=== PATIENT | female | born 1990 | race Caucasian/White ===

== ENCOUNTER 2021-06-13 05:53 | Emergency (ER) | payer OTHER ==
[2021-06-13] MEDS ORDERED: Haloperidol Lactate 5 MG/ML SDV IM ONE (06:55)
[2021-06-13] MEDS ORDERED: Benztropine 1 MG Tab PO STA (06:55)
--- NOTE | 2021-06-13 07:02 | EDM.PDOC ---
ED HPI GENERAL MEDICAL PROBLEM - General Chief Complaint: Headache Stated Complaint: MIGRAINE Time Seen by Provider: 06/13/21 06:36 Source of Information: Reports: Patient History Limitations: Reports: No Limitations - History of Present Illness INITIAL COMMENTS - FREE TEXT/NARRATIVE: Mrs. Robles is a very pleasant 38-year-old woman who now presents the ED with a headache. She states that she has a history of occipital neuralgia, but also states that she has had migraine headaches ever since she was about 4 years old. She states that she has many triggers, and when she was on a gluten-free diet, she went about 6 months without a headache, however, she had to quit that diet due to cost, and since then, she has been experiencing these headaches about every 2 weeks. This current headache began around 13:00 yesterday afternoon, 06/11/2021. She describes it as a squeezing sensation felt in the back of her head and neck. She states that she has an upset stomach, but no nausea or vomiting. She reports photophobia, but no phonophobia. No visual changes, and no neurologic symptoms. She states that her current headache is the same as she always gets. The patient states that she took a rizatriptan tablet around 15:00 yesterday, then 2 Benadryl's last night, then a second rizatriptan tablet around 04:30 this morning, without relief of her symptoms. The patient states that the last imaging study of her head was a CT scan in 2012. Here in the ED, the patient is found to be hemodynamically stable, afebrile, saturating 95% on room air. She appears to be relatively comfortable, in no acute distress. The patient states that she suffers from constipation and chronic low back pain. Otherwise, prior to 13:00 yesterday, the patient denies having a recent fever, chills, sore throat, ear pain, nasal or sinus congestion, cough, dyspnea, chest pain, palpitations, nausea, vomiting, diarrhea, abdominal pain, urinary symptoms, recent weight gain or weight loss, recent bloody bowel movements or black bowel movements, recent joint aches, or rashes. The patient's PCP is Dr. Emely Bennett. Her Neurology midlevel is Swapna Bowman NP. Her Bariatric Surgeon is Dr. Anna Dewing. She has received 2 COVID vaccinations. Headache Pain Score (Numeric/FACES): 8 - Related Data Allergies Allergy/AdvReac Type Severity Reaction Status Date / Time No Known Allergies Allergy Verified 06/13/21 07:12 Past Medical History Respiratory History: Reports: Sleep Apnea (nightly CPAP 11) Gastrointestinal History: Reports: GERD Musculoskeletal History: Reports: Osteoarthritis (spine) Neurological History: Reports: Migraines Psychiatric History: Reports: Anxiety, Depression Endocrine/Metabolic History: Reports: Hypothyroidism (Porsche's thyroiditis), Obesity/BMI 30+ - Past Surgical History HEENT Surgical History: Reports: Adenoidectomy, Naso-Sinus Surgery, Oral Surgery (dental extractions), Tonsillectomy Social & Family History - Tobacco Use Tobacco Use Status *Q: Never Tobacco User - Caffeine Use Caffeine Use: Reports: Coffee - Alcohol Use Alcohol Use History: Yes Alcohol Use Frequency: Rarely - Recreational Drug Use Recreational Drug Use: No - Living Situation & Occupation Living situation: Reports: , with Spouse, with Family (11 yr old daughter) Occupation: Employed ([employer]) ED ROS GENERAL - Review of Systems Review Of Systems: Comprehensive ROS is negative, except as noted in HPI. Musculoskeletal: Reports: Back Pain (chronic) - Physical Exam Exam: See Below Exam Limited By: No Limitations General Appearance: Alert, WD/WN, No Apparent Distress Eye Exam: Bilateral Eye: EOMI, Normal Inspection, PERRL Ears: Normal External Exam, Normal Canal, Hearing Grossly Normal, Normal TMs Nose: Normal Inspection, Normal Mucosa, No Blood Throat/Mouth: Normal Inspection, Normal Lips, Normal Teeth, Normal Gums, Normal Oropharynx, Normal Voice, No Airway Compromise Head Exam: Atraumatic, Normocephalic Neck: Normal Inspection, Supple, Full Range of Motion. No: Lymphadenopathy (L), Lymphadenopathy (R) Respiratory/Chest: No Respiratory Distress, Lungs Clear, Normal Breath Sounds, No Accessory Muscle Use Cardiovascular: Normal Peripheral Pulses, Regular Rate, Rhythm, No Gallop, No JVD, No Murmur, No Rub GI/Abdominal: Normal Bowel Sounds, Soft, Non-Tender, No Organomegaly, No Distention, No Abnormal Bruit, No Mass Neuro Exam (Abbreviated): Alert, Oriented, CN II-XII Intact, Normal Cognition, No Motor/Sensory Deficits Back Exam: Normal Inspection, Full Range of Motion, NT Extremities: Normal Inspection, Normal Range of Motion, Normal Capillary Refill Psychiatric: Normal Affect Skin Exam: Warm, Dry, Intact, Normal Color, No Rash Course - Vital Signs Last Recorded V/S: Last Vital Signs Temp 36.5 C 06/13/21 06:40 Pulse 96 06/13/21 06:40 Resp 20 06/13/21 06:40 BP 126/88 06/13/21 06:40 Pulse Ox 95 06/13/21 06:40 - Orders/Labs/Meds Meds: Medications Discontinued Medications Generic Name Dose Route Start Last Admin Trade Name Prince PRPaulino Reason Stop Dose Admin Benztropine Mesylate 1 mg 06/13/21 06:55 06/13/21 07:05 Benztropine 1 Mg Tab PO 06/13/21 06:56 1 mg ONETIME STA Administration Haloperidol Lactate 5 mg 06/13/21 06:55 06/13/21 07:08 Haloperidol Lactate 5 Mg/Ml Sdv IM 06/13/21 06:56 5 mg ONETIME ONE Administration Ketorolac Tromethamine 60 mg 06/13/21 07:38 06/13/21 07:45 Ketorolac 60 Mg/2 Ml Sdv IM 06/13/21 07:39 60 mg ONETIME ONE Administration - Re-Assessments/Exams Free Text/Narrative Re-Assessment/Exam: 06/13/21 06:55 As above, the patient reports that she has occipital neuralgia, but also states that she has posterior head and neck migraines that she has been suffering from since she was about 4 years old. More recently, she has been experiencing these headaches about every 2 weeks, with her current event beginning around 13:00 yesterday. She describes the pain as squeezing in character. She has associated photophobia, but no associated nausea, visual changes, phonophobia, or neurologic symptoms. She took a rizatriptan around 15:00 yesterday, 2 Benadryl last night, and a second rizatriptan around 04:30 this morning, without relief. Her neurologic examination is completely normal. I recommended treatment with IM Haldol and oral Cogentin, the patient agreed. Because she has not had any nausea or vomiting, Zofran and IV fluid are not necessary. Because the last imaging study of the patient's head was a CT in 2012, I offered to perform a CT of the head here in the ED, however, she would prefer to have an outpatient MRI, which is understandable. 06/13/21 07:38 About half an hour after the IM Haldol was given, the patient reports significant, although incomplete relief of her symptoms. She is requesting an IM injection of Toradol before she is discharged home. I have ordered it. Departure - Departure Time of Disposition: 08:01 Disposition: Home, Self-Care 01 Condition: Good Clinical Impression: Migraine headache without aura - Discharge Information *PRESCRIPTION DRUG MONITORING PROGRAM REVIEWED*: Not Applicable *COPY OF PRESCRIPTION DRUG MONITORING REPORT IN PATIENT NICOLE: Not Applicable Referrals: Emely Bennett [Primary Care Provider] - Anna Castro MD [Ordering Only Provider] - Swapna Bowman NP [Ordering Only Provider] - Forms: ED Department Discharge Additional Instructions: You were seen in the emergency room after developing a typical migraine headache yesterday afternoon. You were treated with the neuroleptic medication Haldol, along with some Cogentin and Toradol, with significant improvement in your symptoms. We recommend that you stay adequately hydrated and get plenty of rest today in a dark, quiet place. Please follow-up with your neurology midlevel, Swapna Bowman NP, at the next available appointment. If any other problems, please do not hesitate to return to the ER. Sepsis Event Note (ED) - Focused Exam Vital Signs: Vital Signs Temp Pulse Resp BP Pulse Ox 06/13/21 06:40 36.5 C 96 20 126/88 95
[2021-06-13] MEDS ORDERED: Ketorolac 60 MG/2 ML SDV IM ONE (07:38)
== END 2021-06-13 08:25 | disposition home or self-care (01) ==
LOC: JD.ED 05:53
DX: G43.009 Migraine without aura, not intractable, without status migrainosus (principal); E66.9 Obesity, unspecified; Z68.41 Body mass index [BMI] 40.0-44.9, adult
CPT/HCPCS: 96372; 99283; A9270; J1630; J1885; 99284